=== PATIENT | female | born 1950 | race Caucasian/White ===

== ENCOUNTER 2021-07-17 10:06 | Outpatient (CLI) | payer MEDICARE, SELFPAY ==
[2021-07-17 10:18] VITALS: BP 136/66; PULSE 103; RESP 16; TEMP 37.1; O2SAT 99
[2021-07-17 10:21] VITALS: BP 150/78; PULSE 88; RESP 16; TEMP 36.5; O2SAT 100; BMI 32.9
[2021-07-17] MEDS: 0.9% Saline Lock 10 ML Syringe IV (10:26)
[2021-07-17 10:56] VITALS: BP 123/57; PULSE 73; RESP 16; TEMP 36.8; O2SAT 98
[2021-07-17 11:56] VITALS: BP 119/62; PULSE 66; RESP 16; TEMP 36.6; O2SAT 100
== END 2021-07-17 23:59 | disposition home or self-care (01) ==
LOC: MS3OUT 10:07 → MS3 10:07
PROVIDERS: Referring Provider Nurse Practitioner Adult Health; Visit Provider Nurse Practitioner Adult Health
DX: Z23 Encounter for immunization (principal); U07.1 COVID-19
CPT/HCPCS: J7050; M0245; Q0245; A4216